=== PATIENT | female | born 1960 | race Two or more races ===

== ENCOUNTER 2021-02-22 12:15 | Inpatient (IN) | payer OTHER ==
[~2021-02-22] VITALS: Ht 157.5 cm; Wt 90.7 kg
[2021-02-23] MEDS ORDERED: ADULT LOW DOSE81 M1 PO (08:22)
[2021-02-23] MEDS ORDERED: GABAPENTIN400 MG PO (08:22)
[2021-02-23] MEDS ORDERED: ATORVASTATIN CA10 MG PO (08:22)
[2021-02-23] MEDS ORDERED: LASIX20 MG PO (08:23)
[2021-02-23] MEDS ORDERED: VERELAN PM100 MG PO (08:23)
[2021-02-24] MEDS ORDERED: TRANDOLAPRIL2 MG (11:13)
[2021-02-24] MEDS ORDERED: FUROSEMIDE40 MG (11:14)
[2021-02-24] MEDS ORDERED: VERAPAMIL ER240 MG (11:14)
[2021-02-24] MEDS ORDERED: ATORVASTATIN CA20 MG (11:14)
[2021-02-24] MEDS ORDERED: GABAPENTIN300 M2 (11:14)
== END 2021-02-26 13:51 | disposition home or self-care (01) | DRG 741 ==
LOC: O/R 02-24 05:48 → OB/GYN 02-24 05:48 → SURH 02-24 07:00 → OB/GYN 02-24 14:33
PROVIDERS: ADMIT Specialist; ATTEND Specialist
PROC: 0UT20ZZ Resection of Bilateral Ovaries, Open Approach (ICD-10-PCS; 2021-02-24)
PROC: 0UT70ZZ Resection of Bilateral Fallopian Tubes, Open Approach (ICD-10-PCS; 2021-02-24)
PROC: 07BC0ZZ Excision of Pelvis Lymphatic, Open Approach (ICD-10-PCS; 2021-02-24)
PROC: 0UT90ZZ Resection of Uterus, Open Approach (ICD-10-PCS; principal; 2021-02-24 07:00)
DX: C54.1 Malignant neoplasm of endometrium (principal); D25.1 Intramural leiomyoma of uterus; N80.0 Endometriosis of uterus; N83.292 Other ovarian cyst, left side; N83.291 Other ovarian cyst, right side; N88.8 Other specified noninflammatory disorders of cervix uteri